=== PATIENT | female | born 2000 | race Caucasian/White ===

== ENCOUNTER 2021-04-10 16:39 | Inpatient (IN) ==
[2021-04-10] MEDS ORDERED: Lidocaine 1% MPF 5 ML VIAL ONE (18:08)
[2021-04-10] MEDS ORDERED: Lidocaine 1% MPF 5 ML VIAL INJ ONE (18:10)
[2021-04-10 20:06] LABS: ABS Eosinophils 0.2 10^3/ul (0-0.6); ABS Lymphocytes 1.5 10^3/ul (1.0-4.8); ABS Monocytes 0.3 10^3/ul (0-0.8); ABS Neutrophils 3.8 10^3/ul (1.5-7.7); Hematocrit 38 % (35-47); Mean Corpuscular HGB Conc 34 g/dL (31-36); Mean Corpuscular Hemoglobin 31 pg (27-31); Mean Corpuscular Volume 92 fL (80-97); Nucleated Red Blood Cells % 0.1; Platelet Count 222 10^3/uL (150-450); Red Blood Count 4.17 10^6 /uL (3.70-4.87); Red Cell Distribution Width 13 % (10-15); White Blood Count 5.7 10^3/uL (3.5-10.8)
[2021-04-10 20:21] LABS: ALT 33 U/L (7-52); AST 17 U/L (13-39); Albumin 4.9 g/dL (3.2-5.2); Albumin/Globulin Ratio 1.9 (1-3); Alkaline Phosphatase 71 U/L (35-149); Anion Gap 9 mmol/L (2-11); Blood Urea Nitrogen 17 mg/dL (6-24); CO2 Carbon Dioxide 25 mmol/L (22-32); Calcium 9.5 mg/dL (8.6-10.3); Chloride 104 mmol/L (101-111); EGFR African American 115.1 (>60); EGFR Non-African American 95.2 (>60); Globulin 2.6 g/dL (2-4); Glucose 118 mg/dL (70-100); Potassium 3.8 mmol/L (3.5-5.0); Sodium 138 mmol/L (135-145); Total Protein 7.5 g/dL (6.4-8.9)
[2021-04-10 20:27] LABS: Urine Appearance Clear; Urine Benzodiazepine Screen None Detected (None Detect); Urine Bilirubin Negative (Negative); Urine Blood Negative (Negative); Urine Cannabinoids Screen None Detected (None Detect); Urine Color Straw; Urine Glucose Negative (Negative); Urine Ketones Negative (Negative); Urine Nitrite Negative (Negative); Urine Opiates Screen None Detected (None Detect); Urine Protein Negative (Negative); Urine Specific Gravity 1.012 (1.002-1.030); Urine Urobilinogen Negative (Negative)
[2021-04-10 20:30] LABS: Acetaminophen < 15 mcg/mL; Alcohol, S < 13 mg/dL (<10); Salicylate < 2.50 mg/dL (<30)
[2021-04-10 20:45] LABS: TSH Ultra Thyroid Stim Horm 0.82 mcIU/mL (0.34-5.60)
[2021-04-10] MEDS ORDERED: FLUVOXAMINE 100 MG PO SCH (23:00)
[2021-04-10] MEDS ORDERED: Al Hydrox/Mg Hydrox/Simet LIQ 30 ML UDC PO PRN (23:22)
[2021-04-11] MEDS ORDERED: CMCS: FluvoxaMINE 50 mg TAB (NF) PO SCH
[2021-04-11 08:26] LABS: Cholesterol 130 mg/dL; HDL Cholesterol 45.7 mg/dL; LDL Cholesterol 76 mg/dL; Triglycerides 43 mg/dL
[2021-04-11 08:29] LABS: HCG Pregnancy < 0.60 mIU/mL
[2021-04-11] MEDS ORDERED: Vitamin THERAPEUTIC TAB PO SCH (09:00)
[2021-04-11] MEDS ORDERED: Cholecalciferol (VIT D3) 1,000 unit TAB PO SCH (09:00)
[2021-04-11 11:31] VITALS: BP 113/63
== END 2021-04-11 12:15 | disposition home or self-care (01) | DRG 882 ==
LOC: ED 16:39 → BSU 23:12
PROVIDERS: ADMIT Psychiatry & Neurology Psychiatry; ATTEND Psychiatry & Neurology Psychiatry